=== PATIENT | male | born 1985 | race Caucasian/White ===

== ENCOUNTER 2025-01-08 10:35 | Emergency (ER) | payer MEDICAID, SELFPAY ==
[2025-01-08 10:36] VITALS: BP 115/73; PULSE 68; TEMP 36.6; O2SAT 97; BMI 23.6
[2025-01-08 11:32] VITALS: BP 112/60; PULSE 64; O2SAT 97
--- NOTE | 2025-01-08 11:36 | ED_ITS ---
HPI - Animal Bite General: Chief Complaint: Animal Bite Stated Complaint: cat bite to L index finger Time Seen by Provider: 01/08/25 11:05 History of Present Illness: 39-year-old male presents emergency room is bitten by a feral cat 1 week ago he seen cosmetology educator today and was referred to the emergency room to the But has not had any redness or inflammation no swelling or pain at the site of the bite or anywhere on the arm. Related Data Previous Rx's ?Medication ?Instructions ?Recorded nicotine (polacrilex) 4 mg gum 4 mg buccal Q1H #110 ea 04/22/23 (Nicorette) nicotine 21 mg/24 hr daily 1 patch transdermal DAILY # 28 ea 04/22/23 transdermal patch Allergies Allergy/AdvReac Type Severity Reaction Status Date / Time No Known Allergies Allergy Verified 01/08/25 10:42 [facility] ED PFSH: Social History Smoking and tobacco/nicotine status: former use of tobacco/nicotine Physical Exam Const: COMMON NORMALS: no acute distress GENERAL APPEARANCE: cooperative and comfortable ORIENTATION/CONSCIOUSNESS: Yes awake, Yes oriented to person, Yes oriented to place and Yes oriented to time HENMT: COMMON NORMALS: normocephalic, atraumatic and hearing grossly normal bilaterally HEAD & SCALP: normocephalic and atraumatic Resp: COMMON NORMALS: normal respiratory effort, No retractions, No use of accessory muscles and clear to auscultation bilaterally AUSCULTATION: clear to auscultation bilaterally Cardio: COMMON NORMALS: regular rate, regular rhythm and No murmurs present (Cardio) RATE: regular rate RHYTHM: regular rhythm Extremity: COMMON NORMALS: normal to inspection, capillary refill normal, no clubbing, cyanosis or edema, no calf tenderness and no pedal edema OTHER: Examination left index finger no redness or inflammation no swelling no lymphatic streaking no epitrochlear or axillary lymph nodes on the left Neuro: SENSORIUM/ORIENTATION: Yes oriented to person, Yes oriented to place and Yes oriented to time Skin: COMMON NORMALS: no rashes or lesions noted GENERAL SKIN EXAM: no rashes or lesions noted Course Vital Signs: Vital signs: Vital Signs Temperature 97.9 F 01/08/25 10:36 Pulse Rate 64 01/08/25 11:32 Blood Pressure 112/60 01/08/25 11:32 Pulse Oximetry 97 01/08/25 11:32 Oxygen Delivery Me thod Room Air 01/08/25 11:32 MDM - Animal Bite Medical Decision Making No signs of cellulitis or cat scratch disease. Will start on rabies vaccination given immunoglobulins and tetanus here complete series as an outpatient Medical Records I reviewed the patient's medical records. Lab Data I reviewed the patient's lab results. No radiology studies performed this visit Discharge Plan Discharge Patient Disposition: Home Clinical Impression: Cat bite Condition: Stable Prescriptions: No Action nicotine 21 mg/24 hr patch 24 hour 1 patch transdermal DAILY Qty: 28 2RF nicotine (polacrilex) [Nicorette] 4 mg gum 4 mg buccal Q1H Qty: 110 2RF Discharge Orders: Discharge ED (Routine); Ordered 01/08/25 Ordered By: Michele Garcia Referrals: Bhupinder Larios MD [Primary Care Provider, Family Practice] Discharge Diet: Usual diet Discharge Activity: Resume usual activity Patient Instructions: Opioid Safety, Pain Management, Patient Portal & Kristal Instructions Activity Restrictions/Additional Instructions: Thank you for choosing [facility] for your healthcare needs today. It is very important that you follow up as instructed or that you return to the Emergency Department should you have concerns or if your condition changes or worsens in any way. Emergency department visits are focused on emergent conditions, in some cases you may require further evaluation on an outpatient basis. You were seen in the emergency room with complaints of a cat bite a week ago. Since the cat is feral and unknown to us and cannot be tested or monitored recommend the start rabies vaccine you are given initial rabies immunoglobulin and rabies vaccine here in the emergency room. Subsequent doses will be given outpatient you are given a schedule for those vaccines. (Please note that included in your discharge packet is information concerning opioid safety and pain management. This information is given to all patients were discharged from the ER regardless of their discharge diagnosis or the medicines they usually take or are prescribed.) Print Language: Swazi Coding Level of Care Code ED Casket Assembler for Bharath Nunez
[2025-01-08] MEDS: rabies vaccine 2.5 unit SDV IM (11:59)
[2025-01-08] MEDS: tetanus-dipt-pertussis 0.5 mL SDV IM (12:01)
[2025-01-08] MEDS: rabies IG 300 unit/mL SDV 1 mL 1500 UNIT IM (12:05)
--- OUTSIDE RECORDS SUMMARY | 2025-01-08 12:28 | XMS_ITS | Clinical Summary ---
Author Organization [facility] Address [address] [place] [phone] Phone Care Team Providers Care Dietary Worker Name Role Phone Unavailable Primary Care Provider Unavailabl e Allergies No known active allergies Medications oxyCODONE (ROXICODONE) 5 mg Oral tablet Take 1-2 Tabs by mouth every 8 hours as needed (mild pain scale 1-3). 90 Tab 0 09/18/2009 Active carisoprodol (SOMA) 350 mg Oral tablet Take 1 Tab by mouth every 8 hours. 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 Gender Identity Not on file Sexual Orientation Not on file Last Filed Vital Signs Vital Sign Reading Time Taken Comments Blood Pressure 125/71 09/18/2009 5:42 AM CDT Pulse 103 09/18/2009 5:42 AM CDT Temperature 38.2 C (100.8 F) 09/18/2009 5:42 AM CDT Respiratory Rate 16 09/18/2009 5:42 AM CDT Oxygen Saturation 95% 09/18/2009 5:42 AM CDT Inhaled Oxygen Concentration - - Weight 71.7 kg (158 lb) 09/16/2009 9:17 PM CDT Height 180.3 cm (5' 11 ) 09/16/2009 9:17 PM CDT Body Mass Index 22.04 09/16/2009 9:17 PM CDT Plan of Treatment Health Maintenance Due Date Last Done Comments HEPATITIS B VACCINES (1 of 3 - 19+ 3-dose series) 08/19 HPV VACCINES (1 - 3-dose SCDM series) 2013 DTAP/TDAP/TD VACCINES (2 - Td or Tdap) 09/17/2019 INFLUENZA VACCINE (#1) 2024 Advance Directives For more information, please contact: [phone] * Full Code (Latest Code Status on File) Date Activated Date Inactivated Comments 09/16/2009 11:42 PM 09/18/2009 7:06 PM
[2025-01-08 12:39] VITALS: BP 112/81; PULSE 96; O2SAT 96
--- NOTE | 2025-01-08 12:43 | PC.NURSE ---
Rosalie DICK called and notified of kitten bite incident on 01/02/25.
== END 2025-01-08 12:41 | disposition home or self-care (01) ==
PROVIDERS: Emergency Provider Family Medicine; PCP Family Medicine
DX: S61.251A Open bite of left index finger without damage to nail, initial encounter (principal); Z87.891 Personal history of nicotine dependence; W55.01XA Bitten by cat, initial encounter; Z20.3 Contact with and (suspected) exposure to rabies; Z29.14 Encounter for prophylactic rabies immune globulin
CPT/HCPCS: 90375; 90471; 90675; 90715; 96372; 99283

== ENCOUNTER 2025-01-16 16:05 | Oncology outpatient (recurring) (ONCR) | payer MEDICAID, SELFPAY ==
[2025-01-16] MEDS: rabies vaccine 2.5 unit SDV IM (16:17)
== END 2025-01-18 23:59 | disposition home or self-care (01) ==
PROVIDERS: PCP Family Medicine; Visit Provider Family Medicine
DX: Z23 Encounter for immunization (principal); Z20.3 Contact with and (suspected) exposure to rabies; W55.01XA Bitten by cat, initial encounter
CPT/HCPCS: 90471; 90675

== ENCOUNTER 2025-01-28 15:29 | Oncology outpatient (recurring) (ONCR) | payer MEDICAID, SELFPAY ==
[2025-01-21] MEDS: rabies vaccine 2.5 unit SDV IM (16:04)
[2025-01-28] MEDS: rabies vaccine 2.5 unit SDV IM (15:39)
== END 2025-02-17 23:59 | disposition home or self-care (01) ==
PROVIDERS: PCP Family Medicine; Visit Provider Family Medicine
DX: Z23 Encounter for immunization (principal); Z20.3 Contact with and (suspected) exposure to rabies; W55.01XA Bitten by cat, initial encounter
CPT/HCPCS: 90471; 90675